=== PATIENT | male | born 1995 ===

== ENCOUNTER 2024-06-26 08:25 | Emergency (ER) | payer OTHER, SELFPAY ==
[2024-06-26 08:29] VITALS: BP 152/98; PULSE 76; RESP 16; TEMP 36.2; O2SAT 100; BMI 44.8
--- NOTE | 2024-06-26 09:11 | ED.BACK ---
HPI - Back Pain/Injury General Chief Complaint: Back Pain/Injury Stated Complaint: back pain Time Seen by Provider: 06/26/24 08:38 Source: patient Mode of arrival: ambulatory Limitations: no limitations History of Present Illness ED Provider: Vandana Duarte PA-C HPI Narrative: 29 yo M with a past medical history of asthma presented to the ED c/o lower back pain x 9 days. Patient reports he was in his usual state of health when this back pain came on suddenly in the lower back radiating to the bilateral flank area. Patient reports pain is aching in nature and has been a constant 8/10 and worsening since. Pain worsens with movement and patient denies any leaking factors. Patient was evaluated at urgent care and was prescribed Motrin without relief of pain. Patient has also been applying topical lidocaine and heat with minimal relief. Denies urinary symptoms including burning, increased frequency, incontinence. Denies radiation to buttocks or legs, numbness or tingling, abdominal pain, nausea, vomiting, constipation, diarrhea, bowel incontinence, fever, chills, dizziness, headache. No similar symptoms in past, no further complaints at this time. MD elicited complaint: back pain Onset (ago): week(s) Timing: constant Severity: severe Pain scale (0-10): 8 Similar Symptoms Previously: No Quality: aching Location: lumbar spine, left flank and right flank Exacerbating factors: movement Relieving factors: none Associated symptoms: denies other symptoms Treatments prior to arrival: NSAIDS Related Data Previous Rx's ?Medication ?Instructions ?Recorded cyclobenzaprine 10 mg tablet 10 mg PO TID PRN muscle spasm #10 06/26/24 tabs ibuprofen 600 mg tablet 600 mg PO Q8H PRN pain #14 tabs 06/26/24 lidocaine 5 % topical patch 1 patch topical DAILY #15 ea 06/26/24 Allergies Allergy/AdvReac Type Severity Reaction Status Date / Time No Known Allergies Allergy Verified 06/26/24 08:33 Review of Systems Review of Systems: Yes all other systems are reviewed and are negative PMFSH Social History Social History Advance Directives: No Advance Directives Information Provided: No Do you have a plan to hurt others: No Plan Physical Exam Vital Signs: Vital Signs: Last Vital Signs Temp 97.2 F 06/26/24 10:11 Pulse 76 06/26/24 10:11 Resp 16 06/26/24 10:11 BP 152/98 H 06/26/24 10:11 Pulse Ox 100 06/26/24 10:11 O2 Del Method Room Air 06/26/24 10:11 BMI result Body Mass Index 44.8 Appearance: Alert. Oriented X3. Lying on stretcher mild distress. Head: normocephalic, atraumatic. EENT: No obvious external abnormalities. Neck: Normal inspection. Neck supple. CVS: Normal heart rate. Respiratory: No respiratory distress. Abdomen: Soft and nontender, nondistended Skin: Skin warm and dry. Normal skin color. Normal skin turgor. No rashes. Extremities: No lower extremity edema. No joint swelling. Neuro/psych: Oriented X 3. Neurovascularly intact. CN II-XII grossly intact. Normal speech and cognition. Back/Spine/Pelvis: Thoracic/Lumbar Spine: thoracic and lumbar spine normal to inspection, paraspinal muscle tenderness and lumbar spinal tenderness Sacroiliac joints: bilaterally tender to palpation Sacrum: tenderness midline Medications Administered Discontinued Medications Generic Name Dose Route Start Last Admin Trade Name Freq PRN Reason Stop Dose Admin Cyclobenzaprine HCl 10 mg 06/26/24 09:07 06/26/24 09:24 Cyclobenzaprine Hcl 10 Mg Tablet PO 06/26/24 09:08 10 mg ONCE ONE Administration Ketorolac Tromethamine 30 mg 06/26/24 09:07 06/26/24 09:24 Ketorolac Tromethamine 30 Mg/Ml Vial IM 06/26/24 09:08 30 mg ONCE ONE Administration Medical Decision Making Medical Decision Making [facility] Narrative: 29 yo M with a past medical history of asthma presented to the ED c/o lower back pain x 9 days. On exam, patient is nontoxic appearing, neurovascularly intact, pain elicited upon movement and palpation to the lumbar spine, paraspinal area, sacrum/sacral area with concern for lumbar sprain or strain, disc herniation, fracture unlikely cauda equina, ankylosing spondylitis, sacroiliitis, UTI, pyelonephritis, nephrolithiasis. Plan for muscle relaxant, pain control, re-evaluation. After treatment patient was feeling much better. Exam reassuring. He has no red flag symptoms. No fevers or IVDA. Will treat for musculoskeletal back pain and have him follow up with his PCP for possible physical therapy referral. We discussed importance of activity modification, ice, heat, rest, stretching exercises. Stable for discharge home. Differential Diagnosis Differential Diagnoses: The differential diagnosis associated with the presentation includes Inflammatory disorders, malignancy, trauma, osteoporosis, nerve root compression, radiculopathy, plexopathy, degenerative disc disease, disc herniation, spinal stenosis, sacroiliac joint dysfunction, facet joint injury, and less likely infection?like abscess or diskitis Tests considered The following testing was considered but not selected: Considered x-ray lumbar spine however there was no trauma to warrant this today. Prescription Management I considered prescription management with: Pain Medication Chronic Conditions Patient?s care impacted by: Other (Obesity) Critical Care Time Critical Care Time Critical Care Time: No Discharge Plan Discharge Clinical Impression: Strain of lumbar region Qualifiers: Encounter type: initial encounter Qualified Code(s): S39.012A - Strain of muscle, fascia and tendon of lower back, initial encounter Patient Disposition: Home, Self-Care Instructions: Low Back Strain (ED), Lower Back Exercises (ED) Additional Instructions: Your pain is most likely due to muscle strain and spasm. No bending, lifting or twisting. Use ice several times per day for 20 minutes at a time for the next 48 hours and then change to heat. Take medications as prescribed to help with pain and discomfort. Follow up with your Primary Care Doctor this week. If your pain worsens, if you develop new numbness, tingling, weakness, loss of function or incontinence call 911 or come back to the ER right away for evaluation. Prescriptions: New cyclobenzaprine 10 mg tablet 10 mg PO TID PRN (Reason: muscle spasm) Qty: 10 0RF ibuprofen 600 mg tablet 600 mg PO Q8H PRN (Reason: pain) Qty: 14 0RF lidocaine 5 % adhesive patch,medicated 1 patch topical DAILY Qty: 15 0RF Rx Instructions: leave on most painful area for up to 12 hrs Interventions: ED Discharge Assessment Last Done: 06/26/24 10:11 Discharge Date/Time: 06/26/24 10:12 Print Language: Lao
[2024-06-26] MEDS: Cyclobenzaprine HCl 10 MG TABLET PO (09:24)
[2024-06-26] MEDS: Ketorolac Tromethamine 30 MG/ML VIAL IM (09:24)
[2024-06-26 10:11] VITALS: BP 152/98; PULSE 76; RESP 16; TEMP 36.2; O2SAT 100
== END 2024-06-26 10:12 | disposition home or self-care (01) ==
PROVIDERS: Emergency Provider Student in an Organized Health Care Education/Training Program
DX: M54.50 Low back pain, unspecified (principal); S39.012A Strain of muscle, fascia and tendon of lower back, initial encounter; X58.XXXA Exposure to other specified factors, initial encounter; Y93.9 Activity, unspecified; Y92.9 Unspecified place or not applicable; Y99.9 Unspecified external cause status
CPT/HCPCS: 96372; 99283; 99284; J1885

== ENCOUNTER 2024-07-01 09:47 | Emergency (ER) | payer OTHER, SELFPAY ==
--- NOTE | ~2024-07-01 | CT_ITS ---
EXAMINATION: CT ABDOMEN AND PELVIS WITHOUT CONTRAST CLINICAL INFORMATION: Left flank pain COMPARISON: None available. TECHNIQUE: Multidetector volumetric imaging was performed from the superior aspect of the liver through the pubic symphysis. Sagittal and coronal reformatted images were obtained on the technologist's workstation. This CT examination was performed using dose optimization techniques as appropriate, variously including the following: *Automated exposure control *Adjustment of mA and/or kV according to patient size (this includes techniques or standardized protocols for targeted exams where dose is matched to indication/reason for exam; i.e. extremities or head) *Use of iterative reconstruction technique DLP: 1193 mGy-cm FINDINGS: LUNG BASES: Atelectasis in the lung bases. No consolidation. LIVER, GALLBLADDER, AND BILIARY TREE: The liver is normal in size, shape, and attenuation. No focal hepatic lesion or biliary ductal dilatation is present. The gallbladder is unremarkable with no evidence of radiopaque gallstones, gallbladder wall thickening, or obvious pericholecystic inflammatory changes. PANCREAS: Unremarkable. SPLEEN: Unremarkable. ADRENAL GLANDS: Unremarkable. KIDNEYS AND URETERS: The kidneys are normal in size, shape, and attenuation. No hydronephrosis, hydroureter, or calculi seen. No perinephric stranding. BLADDER: Unremarkable. GASTROINTESTINAL TRACT: The small and large bowel are unremarkable. The appendix is unremarkable. ABDOMINAL WALL: No significant hernia is appreciated. LYMPH NODES: Normal. VASCULAR: Unremarkable. PELVIC VISCERA: Unremarkable. OSSEOUS STRUCTURES: Unremarkable. CT/CT abdomen pelvis wo IV con IMPRESSION: No CT abnormality to explain the patient's left flank pain. Fleischner guidelines were followed. Electronically signed by: Quincy Hoffman MD 07/01/2024 11:31 AM EDT
[2024-07-01 10:28] VITALS: BP 150/94; PULSE 87; RESP 18; TEMP 36.6; O2SAT 97; BMI 44.6
--- NOTE | 2024-07-01 10:29 | ED_ITS ---
HPI - Back Pain/Injury General Chief Complaint: Back Pain/Injury Stated Complaint: back pain Time Seen by Provider: 07/01/24 19:32 History of Present Illness ED Provider: Dr. Ponce HPI Narrative: 29 y/o M patient; PMH morbid obesity; presents reporting significant left-sided flank pain. Patient states he has had this pain for he last two weeks. 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 He has been seen at [facility] twice and an Urgent Care once for his symptoms. He is currently using lidoderm patches, taking intermittent tylenol/ibuprofen, and using Flexeril in the evening. His is concerned that his symptoms are not improving as he needs to return to work. He has been ambulating with painful discomfort. He denies: Fever or chills, nausea/vomiting, abdominal pain, cough/congestion, dysuria/hematuria/frequency. Related Data Previous Rx's ?Medication ?Instructions ?Recorded cyclobenzaprine 10 mg tablet 10 mg PO TID PRN muscle spasm #10 06/26/24 tabs ibuprofen 600 mg tablet 600 mg PO Q8H PRN pain #14 tabs 06/26/24 lidocaine 5 % topical patch 1 patch topical DAILY #15 ea 06/26/24 Allergies Allergy/AdvReac Type Severity Reaction Status Date / Time No Known Allergies Allergy Verified 07/01/24 10:30 Review of Systems 2 Review of Systems: Yes all other systems are reviewed and are negative Neurologic: Denies Sensory deficit (Neuro) PMFSH Past Medical History Attestation statement: The following information was validated with the patient. Source: old records reviewed Social History Social History Advance Directives: No Advance Directives Information Provided: No Physical Exam 2 Vital Signs: Vital Signs: Last Vital Signs Temp 97.2 F 07/01/24 17:38 Pulse 74 07/01/24 17:38 Resp 18 07/01/24 17:38 BP 129/84 07/01/24 17:38 Pulse Ox 98 07/01/24 17:38 O2 Del Method Room Air 07/01/24 17:38 BMI result Body Mass Index 44.6 Patient is afebrile and hemodynamically stable. Const: General: cooperative Orientation/consciousness: patient oriented x3 HEENT: Head: Yes normal to inspection and Yes atraumatic Eyes: General: appearance normal, both eyes and all related structures P upils: Equal, round and reactive pupils present EOM: EOMs intact bilaterally Neck: Neck: Yes normal visual inspection, Yes full ROM, Yes supple and No tender Chest: Chest palpation & inspection: normal inspection of the chest and normal palpation of entire chest wall Resp: Effort & Inspection: normal respiratory effort, able to speak in complete sentences, no cough and no respiratory distress Auscultation: clear to auscultation bilaterally Cardio: Rate: regular rate Rhythm: regular rhythm Peripheral pulses: P eripheral pulses 2+ throughout GI: Inspection: Yes normal to inspection, No Abdominal wall edema and No distended Palpation (GI): Soft to palpation, not firm, nontender, no guarding and not rigid Auscultation: normal bowel sounds Back/Spine/Pelvis: Other: Reproducible left-sided paralumbar tenderness without skin abnormalities, no direct bony tenderness/step-off/crepitus. Neuro: General: patient oriented x3 and gait normal Cranial nerves: Yes Equal, round and reactive pupils present Motor exam (neuro): 5/5 motor strength present throughout Sensory Exam: No Sensory deficit (Neuro) Course Course Course Narrative: This is a Rapid Medical Examination (RME) performed by Vandana Duarte PA-C in triage. Full HPI, ROS, assessment and treatment plan per primary provider in the Main ED. 29 yo male with history of morbid obesity presents to the ER for evaluation of left lower back and left flank pain for the last 2 weeks. seen here and at an Urgent care in the last week where he was prescribed NSAIDs and muscle relaxers with no relief. pain is mostly in the left flank. no urinary symptoms. Plan: labs, UA, CT scan Reevaluation(s) Reevaluation #1: Patient is afebrile and hemodynamically stable. Reviewed triage work up. CT Abdomen/Pelvis unremarkable. CBC and BMP unremarkable. UA unremarkable. Discussed with patient he currently is taking the correct medications but MSK pain can last several weeks. Plan: Discharge to home with PCP follow up Return precautions given Medical Decision Making Lab Data 07/01/24 10:35 07/01/24 10:35 Labs: Lab Results 07/01/24 07/01/24 Range/Units 10:35 18:37 WBC 10.5 (4.8-10.8) X10*3/uL RBC 5.71 (4.60-5.80) X10*6/uL Hgb 16.0 (14.0-18.0) g/dl Hct 48.2 (42.0-52.0) % MCV 84.4 (80.0-98.0) fL MCH 28.0 (27.0-33.0) pg MCHC 33.2 (31.0-36.0) g/dl RDW 12.5 (11.0-16.0) % Plt Count 377 (160-400) X10*3/uL MPV 9.4 (9.4-12.4) fL Immature Gran % (Auto) 0.5 H (0.0-0.4) % Neut % (Auto) 65.4 (45-73) % Lymph % (Auto) 21.4 (20-40) % [place] % (Auto) 5.1 (2-11) % Eos % (Auto) 6.8 H (0-4) % Baso % (Auto) 0.8 (0-2) % Lymph # (Auto) 2.3 (1.2-4.9) X10*3/uL [place] # (Auto) 0.5 (0.1-1.2) X10*3/uL Eos # (Auto) 0.7 H (0.0-0.4) X10*3/uL Baso # (Auto) 0.1 (0.0-0.2) X10*3/uL Abs Immat Gran (auto) 0.05 H (0.00-0.03) X10*3/uL Absolute Neuts (auto) 6.9 (2.0-8.3) x10*3/uL Absolute Nucleated RBC 0.000 (0.0-0.012) X10*3/uL Nucleated RBC % (auto) 0.0 (0.0-0.2) /100WBC Sodium 140 (135-145) mmol/L Potassium 4.1 (3.3-5.1) mmol/L Chloride 107 (96-108) mmol/L Carbon Dioxide 28 (22-29) mmol/L Anion Gap 9 L (12-20) BUN 17 H (9-16) mg/dL Creatinine 0.87 (0.5-1.4) mg/dL Estim Creat Clear Calc 182.9 Estimated GFR > 60 Random Glucose 104 (60-115) mg/dL Calcium 9.3 (8.4-10.2) mg/dL Magnesium 2.0 (1.6-2.6) mg/dL Total Bilirubin 0.4 (0.0-1.0) mg/dL Direct Bilirubin 0.1 (0.0-0.5) mg/dL AST 16 (5-37) U/L ALT 20 (0-40) U/L Alkaline Phosphatase 67 (39-117) U/L Total Protein 7.0 (6.5-8.0) g/dL Albumin 3.9 (3.5-5.0) g/dL Urine Color Yellow Urine Appearance Clear Urine pH 5.5 (5.0-9.0) Ur Specific [place] 1.015 (1.005-1.025) Urine Protein Negative (Neg-Trace) mg/dL Urine Glucose (UA) Negative (Negative) mg/dL Urine Ketones Negative (Negative) mg/dL Urine Blood Negative (Negative) Urine Nitrite Negative (Negative) Ur Leukocyte Esterase Negative (Negative) Radiology Impression Discussion of test interpretation with radiology: I have reviewed the radiologist's reading. Radiologist Impression: EXAMINATION: CT ABDOMEN AND PELVIS WITHOUT CONTRAST CLINICAL INFORMATION: Left flank pain COMPARISON: None available. TECHNIQUE: Multidetector volumetric imaging was performed from the superior aspect of the liver through the pubic symphysis. Sagittal and coronal reformatted images were obtained on the technologist's workstation. This CT examination was performed using dose optimization techniques as appropriate, variously including the following: *Automated exposure control *Adjustment of mA and/or kV according to patient size (this includes techniques or standardized protocols for targeted exams where dose is matched to indication/reason for exam; i.e. extremities or head) *Use of iterative reconstruction technique DLP: 1193 mGy-cm FINDINGS: LUNG BASES: Atelectasis in the lung bases. No consolidation. LIVER, GALLBLADDER, AND BILIARY TREE: The liver is normal in size, shape, and attenuation. No focal hepatic lesion or biliary ductal dilatation is present. The gallbladder is unremarkable with no evidence of radiopaque gallstones, gallbladder wall thickening, or obvious pericholecystic inflammatory changes. PANCREAS: Unremarkable. SPLEEN: Unremarkable. ADRENAL GLANDS: Unremarkable. KIDNEYS AND URETERS: The kidneys are normal in size, shape, and attenuation. No hydronephrosis, hydroureter, or calculi seen. No perinephric stranding. BLADDER: Unremarkable. GASTROINTESTINAL TRACT: The small and large bowel are unremarkable. The appendix is unremarkable. ABDOMINAL WALL: No significant hernia is appreciated. LYMPH NODES: Normal. VASCULAR: Unremarkable. PELVIC VISCERA: Unremarkable. OSSEOUS STRUCTURES: Unremarkable. CT/CT abdomen pelvis wo IV con IMPRESSION: No CT abnormality to explain the patient's left flank pain. Fleischner guidelines were followed. Electronically signed by: Quincy Hoffman MD 07/01/2024 11:31 AM EDT RP Discharge Plan Discharge Clinical Impression: Strain of lumbar region Patient Disposition: Home, Self-Care Instructions: Acute Low Back Pain (ED) Additional Instructions: As we discussed, you were seen today for lower back pain. Your CT Abdomen/Pelvis was unremarkable. Your labs and urine were unremarkable. Please follow up with a PCP within the next 2 - 3 days to discuss your recent emergency department visit. Return to the emergency department for: Fever Worsening pain Passing out Prescriptions: No Action cyclobenzaprine 10 mg tablet 10 mg PO TID PRN (Reason: muscle spasm) Qty: 10 0RF ibuprofen 600 mg tablet 600 mg PO Q8H PRN (Reason: pain) Qty: 14 0RF lidocaine 5 % adhesive patch,medicated 1 patch topical DAILY Qty: 15 0RF Rx Instructions: leave on most painful area for up to 12 hrs Print Language: Georgian
[2024-07-01 10:41] LABS: Basophils Absolute Auto 0.1 X10*3/uL (0.0-0.2); Basophils Percent Auto 0.8 % (0-2); Eosinophils Absolute Auto 0.7 X10*3/uL (0.0-0.4); Eosinophils Percent Auto 6.8 % (0-4); Hematocrit 48.2 % (42.0-52.0); Imm Gran Abs Auto 0.05 X10*3/uL (0.00-0.03); Imm Gran Pct Auto 0.5 % (0.0-0.4); Lymphocytes Absolute Auto 2.3 X10*3/uL (1.2-4.9); Lymphocytes Percent Auto 21.4 % (20-40); MANUAL DIFF FLAG NO; Mean Corpuscular HGB Conc 33.2 g/dl (31.0-36.0); Mean Corpuscular Volume 84.4 fL (80.0-98.0); Mean Platelet Volume 9.4 fL (9.4-12.4); Monocytes Absolute Auto 0.5 X10*3/uL (0.1-1.2); Monocytes Percent Auto 5.1 % (2-11); Neutrophils Absolute Auto 6.9 x10*3/uL (2.0-8.3); Neutrophils Percent Auto 65.4 % (45-73); Platelet Count 377 X10*3/uL (160-400); Red Blood Count 5.71 X10*6/uL (4.60-5.80); Red Cell Distribution Width 12.5 % (11.0-16.0); White Blood Count 10.5 X10*3/uL (4.8-10.8)
[2024-07-01 10:58] LABS: Alanine Aminotransferase 20 U/L (0-40); Albumin Level 3.9 g/dL (3.5-5.0); Alkaline Phosphatase 67 U/L (39-117); Anion Gap 9 (12-20); Aspartate Amino Transferase 16 U/L (5-37); Bilirubin Direct 0.1 mg/dL (0.0-0.5); Bilirubin Total 0.4 mg/dL (0.0-1.0); Blood Urea Nitrogen 17 mg/dL (9-16); Calcium 9.3 mg/dL (8.4-10.2); Carbon Dioxide 28 mmol/L (22-29); Chloride 107 mmol/L (96-108); Creatinine Clr Calc Pharmacy 182.9; Estimated Glomerular Filt Rate > 60; Glucose Random 104 mg/dL (60-115); Potassium 4.1 mmol/L (3.3-5.1); Sodium 140 mmol/L (135-145)
[2024-07-01 17:38] VITALS: BP 129/84; PULSE 74; RESP 18; TEMP 36.2; O2SAT 98
[2024-07-01 19:44] LABS: Appearance Urine Clear; Color Urine Yellow; Glucose Urine UA Negative (Negative); Leukocyte Esterase Urine Negative (Negative); Nitrite Urine Negative (Negative); PH 5.5 (5.0-9.0); Specific Gravity - Urine 1.015 (1.005-1.025); Urine Blood Negative (Negative); Urine Ketones Negative (Negative); Urine Protein Negative (Neg-Trace)
[2024-07-01 20:48] VITALS: BP 129/84; PULSE 74; RESP 18; TEMP 36.2; O2SAT 98
== END 2024-07-01 20:49 | disposition home or self-care (01) ==
PROVIDERS: Physician Assistant; Emergency Provider Emergency Medicine
DX: S39.012A Strain of muscle, fascia and tendon of lower back, initial encounter (principal); X50.9XXA Other and unspecified overexertion or strenuous movements or postures, initial encounter; Y93.89 Activity, other specified; Y92.89 Other specified places as the place of occurrence of the external cause; Y99.0 Civilian activity done for income or pay
CPT/HCPCS: 36415; 74176; 80048; 80076; 81003; 83735; 85025; 99283; 99284